=== PATIENT | female | born 1955 | race Caucasian/White ===

== ENCOUNTER 2016-12-22 07:40 | Inpatient (IN) | payer BC ==
[2016-11-27 12:12] VITALS: BMI 36.0
--- NOTE | 2016-11-27 12:45 | PAT Medication Instructions ---
Service Date Nov 27, 2016. Current Home Medication List Acetaminophen (Tylenol), 650 MG PO Q6 PRN for Pain Ibuprofen Tab (Motrin), 1 TAB PO TID PRN for Pain Mirabegron (Myrbetriq Er), 25 MG PO HS Multivitamin (Multivitamin), 1 TAB PO QAM Medication Instructions For Your Scheduled Surgery - Hold the following medications 10 days prior to surgery per surgeon instructions: Ibuprofen Tab (Motrin), 1 TAB PO TID PRN for Pain - Hold the following medications the morning of surgery: Multivitamin (Multivitamin), 1 TAB PO QAM - Take the following medications the morning of surgery with a sip of water: Acetaminophen (Tylenol), 650 MG PO Q6 PRN for Pain (if needed) - Take the following medications as scheduled the night before surgery: Mirabegron (Myrbetriq Er), 25 MG PO HS Acetaminophen (Tylenol), 650 MG PO Q6 PRN for Pain If you have any questions please call us at [phone] or [phone] ( [place]) or [phone]
--- NOTE | 2016-11-27 13:27 | DIAGNOSTIC IMAGING REPORT ---
CHEST PREADMISSION(PA/LAT) CLINICAL HISTORY: Preoperative evaluation. COMPARISON STUDY: No previous studies for comparison. FINDINGS: Lung volumes are normal. Lungs are clear. There is no pneumothorax or pleural effusion. Cardiac size is normal. Mediastinal contours are normal. There is no evidence of pulmonary edema. IMPRESSION: No acute cardiopulmonary findings. Electronically signed by: Nishant Gary M.D. 11/27/2016 1:26 PM Dictated Date/Time: 11/27/2016 1:25 PM
[2016-11-27 13:43] LABS: BASO % 0.8 %; BASO ABS # 0.05 K/uL (0-0.2); COMPLETE YES; EOS % 1.9 %; HEMATOCRIT 42.5 % (37-47); LYMPH ABS # 1.32 K/uL (1.2-3.4); MEAN CELL VOLUME 87.8 fL (80-100); MEAN CORPUSCULAR HEMOGLOBIN 29.8 pg (25-34); MEAN CORPUSCULAR HGB CONC 33.9 g/dl (32-36); MEAN PLATELET VOLUME 10.4 fL (7.4-10.4); MONO % 8.9 %; NEUT % 67.4 %; PLATELET COUNT 210 K/uL (130-400); RED BLOOD COUNT 4.84 M/uL (4.2-5.4)
[2016-11-27 13:50] LABS: PROTHROMBIN TIME (PATIENT) 10.7 SECONDS (9.0-12.0)
[2016-11-27 13:51] LABS: URINE APPEARANCE CLEAR (CLEAR); URINE BILIRUBIN NEG (NEG); URINE COLOR YELLOW; URINE EPITHELIAL CELL AUTO 20-30 /lpf (0-5); URINE NITRITE NEG (NEG); URINE SPECIFIC GRAVITY 1.015 (1.000-1.030); UROBILINOGEN NEG (NEG)
[2016-11-27 13:52] LABS: MANUAL MICROSCOPIC REQUIRED? NO; REVIEW REQ? NO
[2016-11-27 14:01] LABS: BUN/CREATININE RATIO 20.4 (10-20); CALCIUM 9.3 mg/dl (8.5-10.1); CREATININE 0.89 mg/dl (0.60-1.20); POTASSIUM 4.1 mmol/L (3.5-5.1)
--- NOTE | 2016-12-19 11:38 | HISTORY & PHYSICAL EXAMINATION ---
DATE OF ADMISSION: 12/22/2016 CHIEF COMPLAINT: Left knee pain. HISTORY OF PRESENT ILLNESS: Ms. Alvarez is a 61-year-old female with a multiple-year history of pain in her left knee. The patient has had much worse pain over the last 2 months. The patient has 10/10 pain. She has had injections, NSAID and bracing without relief. She now uses a cane. She has failed conservative treatment and is scheduled for a left knee replacement. PAST MEDICAL HISTORY: Urinary incontinence. She denies heart disease, diabetes or DVT. PAST SURGICAL HISTORY: Cholecystectomy in 2013, a partial hysterectomy. SOCIAL HISTORY: She denies alcohol or tobacco use. She lives in a single story home. She is and works as a quality control engineering technician. FAMILY HISTORY: Positive for DVT in her father who has leukemia. MEDICATIONS: ____ 25 mg daily, Advil p.r.n., Tylenol p.r.n. ALLERGIES: None. REVIEW OF SYSTEMS: See HPI. Ten other systems reviewed, all negative. PHYSICAL EXAMINATION: VITAL SIGNS: Height 5 foot 5, weight 219 pounds. BMI is 36. GENERAL: This is a well-developed, well-nourished female who is alert and oriented x3. Mood and affect are appropriate. HEAD, EYES, EARS, NOSE, AND THROAT: Normocephalic, atraumatic. Mucous membranes are moist and intact. NECK: Supple without lymphadenopathy. HEART: Regular rate and rhythm without murmurs, rubs, gallops. LUNGS: Clear to auscultation without wheezes or rhonchi. ABDOMEN: Soft and nontender. Bowel sounds are equal and active. EXTREMITIES: No ecchymosis, redness or warmth. Thigh and calf are soft and nontender. The patient has varus deformity. Range of motion is from 3 to 115 degrees with +2 to 3 laxity. She is neurovascularly intact with +5/5 strength. X-RAY EXAMINATION: AP and lateral views show joint space narrowing and osteophyte formation. IMPRESSION: Degenerative joint disease left knee. PLAN: The patient will be admitted for a left total knee arthroplasty. We will plan on aspirin for DVT prophylaxis. PCP is Olga Agee in [place]. She is doing outpatient physical therapy.
[~2016-12-22] VITALS: Ht 165.1 cm; Wt 98.7 kg
[2016-12-22] VITALS (7 sets, daily range): BP systolic 102–154; BP diastolic 66–75; PULSE 64–74; TEMP 36.3–36.8; O2SAT 95–99; Ht 165.1 cm; Wt 98.7 kg
[~2016-12-22 07:40] MED LIST: ACET-1311 PO; ACETAMINOPHEN 500 MG TAB PO SCH; BUPIVACAINE 0.5 % 5 MG/1 ML PF 10ML VIAL ONE; BUPIVACAINE/EPINEPHRINE 0.25% 1:200,000 30 ML VIAL ONE; CEFAZOLIN 2000 MG/60 ML D5W 60 ML IV SCH; CeleBREX 200 MG CAP PO SCH; DEXAMETHASONE 4 MG TAB PO SCH; FAMOTIDINE 20 MG TAB PO SCH; GABAPENTIN 300 MG CAP PO SCH; IBUP-1449 PO; LACTATED RINGER'S 1000ML 1,000 ML IV SCH; LACTATED RINGER'S 1000ML 500 ML IV ONE; METOCLOPRAMIDE HCL 10 MG TAB PO SCH; MIRA100T PO; MULT-506 PO; OXYCODONE HCL 10 MG TABCR (OXYCONTIN) PO SCH; POLYMYXIN B SULFATE 100,000 UNITS in NSS 100ML IR SCH; ROPIVACAINE 5MG/ML 30 ML 150 MG, BUPIVACAINE/EPINEPHR 0.5% MPF 30 ML, KETOROLAC TROMETH... INFIL SCH; VANCOMYCIN INJ 400 MG in NSS 100ML IR SCH
[2016-12-22] MEDS ORDERED: PROPOFOL IV EMULSION 10 MG/ML 20 ML VIAL IV ONE ×2 (09:32→09:35)
[2016-12-22] MEDS ORDERED: LIDOCAINE HCL 2% 2 ML VIAL (20MG/ML) ONE (09:32)
[2016-12-22] MEDS ORDERED: MIDAZOLAM HCL 1 MG/ML 2ML VIAL ONE (09:32)
[2016-12-22] MEDS ORDERED: FENTANYL CITRATE INJ 50 MCG/1 ML 2 ML VIAL ONE (09:32)
--- NOTE | 2016-12-22 09:34 | History & Physical Bridge Note ---
H&P Re-Evaluation Bridge Note: I have examined the patient, reviewed the History & Physical and in the interval since the performance of the History & Physical I have noted the following changes of clinical significance: No changes noted
[2016-12-22] MEDS ORDERED: FLUMAZENIL 0.1 MG/1 ML 10 ML VIAL IV PRN (09:45)
[2016-12-22] MEDS ORDERED: HYDROmorphone INJ 2 MG/ML SYR/VIAL IV PRN (09:45)
[2016-12-22] MEDS ORDERED: NALOXONE HCL 0.4 MG/1 ML VIAL/CARP IV PRN (09:45)
[2016-12-22] MEDS ORDERED: ATROPINE SULFATE 0.1 MG/ML 5ML SYR IV PRN (09:45)
[2016-12-22] MEDS ORDERED: ONDANSETRON INJ 2 MG/ML 2 ML VIAL IV PRN ×2 (09:45→12:15)
[2016-12-22] MEDS ORDERED: MEPERIDINE HCL 25 MG/ML CARP IV PRN (09:45)
[2016-12-22] MEDS ORDERED: LABETALOL HCL IV 5 MG/ML 20ML IV PRN (09:45)
[2016-12-22] MEDS ORDERED: PHENYLEPHRINE 100MCG/ML 5ML SYR IV PRN (09:45)
[2016-12-22] MEDS ORDERED: EpHEDrine SULFATE INJ 50 MG/ML AMP IV PRN (09:45)
[2016-12-22] MEDS ORDERED: FENTANYL CITRATE INJ 50 MCG/1 ML 2 ML VIAL IV PRN (09:45)
[2016-12-22] MEDS: TRANEXAMIC ACID INJ 1,000 MG in SODIUM CHLORIDE 0.9% 100ML 100 ML IV SCH ×2 (09:57→14:46)
[2016-12-22] MEDS ORDERED: ORTHO JOINT ANESTHETIC ONE (10:19)
[2016-12-22] MEDS ORDERED: BUPIVACAINE/EPINEPHRINE 0.25% 1:200,000 30 ML VIAL ONE ×2 (10:19→10:20)
[2016-12-22] MEDS ORDERED: POVIDONE-IODINE OP SOLN 30 ML BTL ONE (10:20)
[2016-12-22] MEDS ORDERED: BACITRACIN 50000 UNIT VIAL ONE (10:20)
[2016-12-22] MEDS ORDERED: LABETALOL HCL IV 5 MG/ML 20ML ONE (11:25)
--- NOTE | 2016-12-22 12:05 | [facility] Post Operative Brief Note ---
Immediate Operative Summary Operative Date Dec 22, 2016. Pre-Operative Diagnosis Left Knee Degenerative Joint Disease Post-Operative Diagnosis Left Knee Degenerative Joint Disease Procedure(s) Performed Left Total Knee Arthroplasty, Cemented Surgeon Dr. Jhonatan Sahu Slitter Operator Surgeon(s) Jett Arizmendi PA-C Estimated Blood Loss 75 mL Findings DJD Specimens A: Left Knee Bone and Tissue Complication(s) None Disposition Recovery Room / PACU
[2016-12-22] MEDS ORDERED: MoRPHine SULFATE 2 MG/ML CARP IV PRN (12:15)
[2016-12-22] MEDS ORDERED: ZOLPIDEM TARTRATE 5 MG TAB PO PRN (12:15)
[2016-12-22] MEDS ORDERED: KETOROLAC TROMETHAMINE 30 MG/ML VIAL IV. PRN (12:15)
[2016-12-22] MEDS ORDERED: METOCLOPRAMIDE HCL INJ 5 MG/ML 2 ML VIAL IV PRN (12:15)
[2016-12-22] MEDS ORDERED: MAGNESIUM HYDROXIDE SUSP 30 ML UDC PO PRN (12:15)
[2016-12-22] MEDS ORDERED: ALUMINUM/MAGNESIUM/SIMETH (MAALOX MAX) 30 ML UDC PO PRN (12:15)
[2016-12-22] MEDS ORDERED: BISACODYL 10 MG SUPP PR PRN (12:15)
[2016-12-22] MEDS ORDERED: SOD PHOSPHATE/SOD BIPHOSPHATE ENEMA 132 ML BTL PR PRN (12:15)
[2016-12-22] MEDS ORDERED: TRAMADOL HCL 50 MG TAB PO PRN (12:15)
[2016-12-22] MEDS ORDERED: DiphenhydrAMINE HCL 50 MG/ML VIAL IV PRN (12:15)
--- NOTE | 2016-12-22 13:14 | DIAGNOSTIC IMAGING REPORT ---
LEFT KNEE 2 VIEWS History: Left total knee arthroplasty. Degenerative arthritis. Postop. FINDINGS: The patient is status post a left total knee arthroplasty. The hardware is intact. No fracture or dislocation. Surgical drains are in place. IMPRESSION: Left total knee arthroplasty. No evidence for hardware complication. Electronically signed by: Renny Ghosh M.D. 12/22/2016 1:12 PM Dictated Date/Time: 12/22/2016 1:11 PM
[2016-12-22] MEDS ORDERED: HydrALAZINE HCL 20 MG/ML VIAL ONE ×2 (13:19→13:26)
--- NOTE | 2016-12-22 13:26 | Anesthesiology Progress Note ---
Anesthesia Post Op Note Date & Time Dec 22, 2016 at 13:26 Vital Signs Pain Intensity: 0 Vital Signs Past 12 Hours Date Time Temp Pulse Resp B/P Pulse Ox O2 Delivery O2 Flow Rate FiO2 12/22/16 13:20 70 18 126/61 97 Nasal Cannula 2 12/22/16 13:10 68 14 129/67 98 Nasal Cannula 2 12/22/16 13:00 68 19 121/60 96 Nasal Cannula 2 12/22/16 12:50 67 14 127/59 97 Nasal Cannula 2 12/22/16 12:42 36.4 84 19 122/51 93 Nasal Cannula 2 12/22/16 08:14 36.5 74 20 154/74 99 Room Air Notes Mental Status: alert / awake / arousable, participated in evaluation Pt Amnestic to Procedure: Yes Nausea / Vomiting: adequately controlled Pain: adequately controlled Airway Patency, RR, SpO2: stable & adequate BP & HR: stable & adequate Hydration State: stable & adequate Neuraxial Anesthesia: was administered, sensory block is resolving Anesthetic Complications: no major complications apparent
[2016-12-22] MEDS: D5W AND 1/2NSS + 20MEQ KCL 1,000 ML IV SCH ×2 (14:53→23:54)
[2016-12-22] MEDS: ACETAMINOPHEN 500 MG TAB PO SCH ×2 (15:54→22:03)
[2016-12-22] MEDS ORDERED: TRANEXAMIC ACID INJ 1,000 MG in SODIUM CHLORIDE 0.9% 100ML 100 ML IV SCH (16:00)
--- NOTE | 2016-12-22 17:28 | OPERATIVE REPORT ---
DATE OF OPERATION: 12/22/2016 PREOPERATIVE DIAGNOSIS: Degenerative arthritis, left knee. POSTOPERATIVE DIAGNOSIS: Same. PROCEDURE: Left total knee with patient matched implant. SURGEON: Jhonatan Sahu MD DE ALCHOLIZER: ASHUTOSH Aguirre ANESTHESIA: Spinal. BLOOD LOSS: 75 mL. REPLACEMENT FLUIDS: 1500 mL crystalloid. DRAINS: Hemovac x2. CULTURES: None. COMPLICATIONS: None. COMPONENTS USED: [employer] Knee System: Femur size 5, tibia size 4 x 10, patella size 35. NOTE: Jett Arizmendi was present and assisted throughout. He first assisted throughout. He personally closed the capsule, subcutaneous and skin layers and applied the postoperative dressing. DESCRIPTION OF PROCEDURE: Following satisfactory spinal, the patient was supine, a tourniquet was placed but not inflated. The lower extremity was prepared with ChloraPrep and draped sterilely. Following a surgical time-out, a midline incision was made with a trivector approach. The knee showed grade 4 changes most marked in the medial and patellofemoral compartments. The cruciate ligaments were excised. The patient matched femoral block was applied. Femoral distal rotation and resection were set and completed. A 4-in-1 block was used to finish preparation of the femur. The patient matched tibial block was applied. Tibial resection was completed. The patella was freehand cut. Soft tissue balancing was completed and a trial reduction showed good tensioning stability on the collateral ligament, stable range of motion, and the patella tracked well. The trial components were removed. The capsule was prepared with the orthopedic cocktail and following irrigation, the components were cemented with Simplex G cement. When the cement had hardened, the wound was irrigated and Betadine soak was performed for 5 minutes. After 5 minutes, the Betadine was irrigated. Two drains were placed. The arthrotomy was closed with running suture of 0 V-Loc and 2-0 Vicryl and the skin with a running subcuticular stitch of 3-0 V-Loc. Dermabond and a dry dressing were applied. The patient was returned to her bed in stable condition. I attest to the content of the Intraoperative Record and any orders documented therein. Any exceptio ns are noted below.
[2016-12-22] MEDS: CEFAZOLIN IV 2,000 MG in DEXTROSE 5% 50ML 50 ML IV SCH (19:59)
[2016-12-22] MEDS: ASPIRIN 81 MG ECTAB PO SCH (20:28)
[2016-12-22] MEDS ORDERED: MIRABEGRON ER 25 MG TAB PO SCH (21:00)
[2016-12-22] MEDS ORDERED: SENNA 8.6 MG TAB PO SCH (21:00)
[2016-12-22] MEDS: OXYCODONE HCL IR 5 MG TAB (IMMEDIATE RELEASE) PO PRN (23:54)
[2016-12-23 03:40] VITALS: BP 118/67; PULSE 67; TEMP 36.8; O2SAT 95
[2016-12-23] MEDS: CEFAZOLIN IV 2,000 MG in DEXTROSE 5% 50ML 50 ML IV SCH (04:07)
[2016-12-23] MEDS: ACETAMINOPHEN 500 MG TAB PO SCH (06:00)
[2016-12-23 06:53] LABS: HEMATOCRIT 35.3 % (37-47); MEAN CELL VOLUME 85.3 fL (80-100); MEAN CORPUSCULAR HEMOGLOBIN 29.2 pg (25-34); MEAN CORPUSCULAR HGB CONC 34.3 g/dl (32-36); MEAN PLATELET VOLUME 9.9 fL (7.4-10.4); PLATELET COUNT 196 K/uL (130-400); RED BLOOD COUNT 4.14 M/uL (4.2-5.4); WHITE BLOOD COUNT 14.67 K/uL (4.8-10.8)
[2016-12-23 07:20] LABS: BUN/CREATININE RATIO 11.9 (10-20); CALCIUM 8.4 mg/dl (8.5-10.1); CREATININE 0.83 mg/dl (0.60-1.20); POTASSIUM 4.1 mmol/L (3.5-5.1)
--- NOTE | 2016-12-23 08:01 | Orthopedic Progress Note ---
Orthopedic Progress Note Date of Service Dec 23, 2016. Subjective Post OP Day: 1 Reports: feeling well, Denies: SOB, calf pain, chest pain, light headedness, nausea / vomiting Objective calves soft nontender, N/V intact, dressing C/D/I, A&O x3, toes mobile, hemovac drainage (180/15CC PER SHIFT) Date Time Temp Pulse Resp B/P Pulse Ox O2 Delivery O2 Flow Rate FiO2 12/23/16 03:40 36.8 67 16 118/67 95 Room Air 12/22/16 23:50 Room Air 12/22/16 23:40 36.8 71 16 113/66 96 Room Air 12/22/16 15:40 36.5 66 18 102/67 95 Nasal Cannula 2.0 12/22/16 14:59 36.3 67 17 123/74 96 Nasal Cannula 2.0 12/22/16 14:51 64 16 111/70 96 Nasal Cannula 2.0 12/22/16 14:11 64 16 120/72 97 Nasal Cannula 2.0 12/22/16 13:45 36.6 71 16 115/75 96 Nasal Cannula 2.0 12/22/16 13:45 96 Nasal Cannula 2.0 12/22/16 13:45 96 Nasal Cannula 2.0 12/22/16 13:30 36.6 69 16 131/72 96 Nasal Cannula 2 12/22/16 13:20 70 18 126/61 97 Nasal Cannula 2 12/22/16 13:10 68 14 129/67 98 Nasal Cannula 2 12/22/16 13:00 68 19 121/60 96 Nasal Cannula 2 12/22/16 12:50 67 14 127/59 97 Nasal Cannula 2 12/22/16 12:42 36.4 84 19 122/51 93 Nasal Cannula 2 12/22/16 08:14 36.5 74 20 154/74 99 Room Air Laboratory Results 24 Hours: Test 12/23/16 06:34 Hematocrit 35.3 % Hemoglobin 12.1 g/dL Assessment & Plan Assessment: POD#1 SP LEFT TKA Inhouse Planning Pain Management: Celebrex, Oxycontin, PO Tylenol, Oxy IR DVT Prophylaxis: TEDs, SCDs, ASA Discharge Planning Discharge Planning: home with oppt (DC HOME TODAY)
--- NOTE | 2016-12-23 08:02 | Discharge Instructions ---
Discharge Instructions Admission Reason for Admission: Left Knee Degenerative Arthritis Discharge Discharge Diagnosis / Problem: SP LEFT TKA Discharge Goals Goal(s): Decrease discomfort, Improve function, Increase independence Activity Recommendations Activity Limitations: per Instructions/Follow-up section . Instructions / Follow-Up Instructions / Follow-Up ACTIVITY RECOMMENDATIONS: SELF CARE INSTRUCTIONS AFTER TOTAL KNEE REPLACEMENT A. You may need to continue a physical therapy program after discharge from the hospital. There are several options available to you. Your doctor will assist you in selecting the best one for you. 1. An out-patient facility 2 to 3 times a week for therapy or home therapy. 2. Continue working on all exercises taught to you in the hospital. Your goals should be to increase bending of your knee to 90 degrees and beyond and to fully straighten your knee. B. You may progress at your own pace from walking with a walker or crutches to a cane; then to no assistive devices. C. Make walking a part of your daily routine. Be up as much as comfortable with rest periods throughout the day. Rest with leg elevation is very important. Use the ice wrap frequently for the first 3-4 weeks. D. There are no restrictions on activities. You may ride in a car, shop, participate in flight teacher and all social activities. E. Wear the long elastic stockings (JEYSON hose) 20 hours a day for 2 weeks after surgery. They can be removed several times a day for laundering and for a bath. F. You may shower, no tub baths until cleared by your doctor. SPECIAL CARE INSTRUCTIONS: VERY IMPORTANT TO READ AND REVIEW A. There are a few signs you need to watch for after you are home. Call [facility] if you notice any of the followin. Increased severe knee pain. Some pain is expected especially when you exercise. 2. Increased swelling in your leg or knee; pain or swelling of the calf muscle in either lower leg. 3. Any fluid drainage from the incision. 4. Shortness of breath or chest pain. B. Please call [facility] at if you have any concerns or questions about your operation or recovery. The doctor or his nurse will return your call promptly. C. You must take antibiotics before dental work, bladder, bowel or other surgery. Your doctor will provide you with a permanent care to carry describing this precaution. IMPORTANT: * REMEMBER TO TAKE ASPIRIN, 81 MG, TWICE DAILY FOR 4 WEEKS UNLESS OTHERWISE DIRECTED. THIS IS YOUR BLOOD THINNER. * HIGH RISK PATIENTS MAY BE PRESCRIBED A STRONGER BLOOD THINNER. THIS WILL BE PROVIDED AT DISCHARGE. * CALL IF INCREASED PAIN, REDNESS, DRAINAGE OR FEVER GREATER THAT 101. * WEAR JEYSON HOSE 20 HOURS PER DAY FOR 2 WEEKS. DERMABOND Prineo- This is a mesh tape dressing that is covered with glue. It should remain in place until the incision is properly healed, usually 10-14 days. This dressing is designed to naturally slough off. You may trim the excess mesh tape as it peels off. Incision may be briefly wet in a shower. Dry immediately by blotting with a clean, dry towel. Do not bath or swim until instructed by your doctor. Do not scratch, rub, or pick at the dressing. Do not apply any topical ointments or lotions until dressing is completely removed and/or instructed by your doctor. There may be a small piece of suture material at one end of your incision. Do not pull or trim this. If it is bothersome or catching on clothing, you may cover it with a band-aid. FOLLOW UP VISIT: If appointment is not already scheduled: Please call [facility] to make a follow-up appointment for 2 weeks after your surgery at . Current Hospital Diet Patient's current hospital diet: Regular Diet Discharge Diet Recommended Diet: Regular Diet Procedures Procedures Performed: Left Total Knee Arthroplasty, Cemented Pending Studies Studies pending at discharge: no Medical Emergencies . Who to Call and When: Medical Emergencies: If at any time you feel your situation is an emergency, please call 911 immediately. . Non-Emergent Contact Non-Emergency issues call your: Primary Care Provider . "Provider Documentation" section prepared by Janneth Robison. VTE Core Measure Inpt VTE Proph given/why not?: Other Anticoagulation, T.E.DJayne Dalton, SCD's [place] Drug Monitoring Program Search Results: no issues identified
[2016-12-23] MEDS ORDERED: ONDA8TAB6 PO (08:04)
[2016-12-23] MEDS ORDERED: RXC5 PO (08:04)
[2016-12-23] MEDS ORDERED: CLB200 PO (08:04)
[2016-12-23] MEDS ORDERED: ASPEC81 PO (08:04)
[2016-12-23] MEDS ORDERED: SNK PO (08:04)
[2016-12-23] MEDS ORDERED: ACET-1138 PO (08:04)
[2016-12-23 08:07] VITALS: BP 126/65; PULSE 66; TEMP 36.6; O2SAT 97
--- NOTE | 2016-12-23 08:12 | Anesthesiology Progress Note ---
Anesthesia Post Op Note Date & Time Dec 23, 2016 at 08:12 Vital Signs Pain Intensity: 6.0 Vital Signs Past 12 Hours Date Time Temp Pulse Resp B/P Pulse Ox O2 Delivery O2 Flow Rate FiO2 12/23/16 08:07 36.6 66 16 126/65 97 Room Air 12/23/16 03:40 36.8 67 16 118/67 95 Room Air 12/22/16 23:50 Room Air 12/22/16 23:40 36.8 71 16 113/66 96 Room Air Notes Mental Status: alert / awake / arousable, participated in evaluation Pt Amnestic to Procedure: Yes Nausea / Vomiting: adequately controlled Pain: adequately controlled Airway Patency, RR, SpO2: stable & adequate BP & HR: stable & adequate Hydration State: stable & adequate Neuraxial Anesthesia: sensory block resolved Anesthetic Complications: no major complications apparent
[2016-12-23] MEDS ORDERED: PANTOprazole SOD 40 MG TAB PO SCH (09:00)
[2016-12-23] MEDS ORDERED: MULTIVITAMIN TAB PO SCH (09:00)
[2016-12-23] MEDS: ASPIRIN 81 MG ECTAB PO SCH (09:06)
[2016-12-23] MEDS: OXYCODONE HCL IR 5 MG TAB (IMMEDIATE RELEASE) PO PRN ×2 (09:09→13:06)
[2016-12-23] MEDS: D5W AND 1/2NSS + 20MEQ KCL 1,000 ML IV SCH (10:30)
[2016-12-23 12:09] VITALS: BP 147/69; PULSE 70; TEMP 36.5; O2SAT 100
[2016-12-24] MEDS ORDERED: CeleBREX 200 MG CAP PO SCH (21:00)
--- NOTE | 2016-12-25 17:26 | DISCHARGE SUMMARY ---
DISCHARGE DIAGNOSIS: Degenerative joint disease, left knee. SECONDARY DIAGNOSIS: Urinary incontinence. CONSULTATIONS: None. COMPLICATIONS: None. PROCEDURE: Left total knee arthroplasty performed by Dr. Joni Sahu on 12/22/2016. BRIEF HISTORY: As dictated in the history and physical. HOSPITAL SUMMARY: The patient was admitted on the above date and had the above-noted surgery performed which he tolerated well. On the first postoperative day, the patient was feeling well and had no complaints. Calves were soft, nontender, neurovascularly intact. Dressings were clean, dry and intact. Toes were mobile. Vital signs were stable. She was afebrile and hemoglobin was 12.1. She was started on physical therapy protocol and continued on DVT prophylaxis and pain management. In physical therapy, she had obtained 82 degrees of flexion and was ambulating 400 feet with a standard walker. The patient was progressing well and remaining stable and it was felt that she could be discharged to home on 12/23/2016. For further review, please see chart. LABORATORY AND X-RAY DATA: As per chart. DISCHARGE INSTRUCTIONS: The patient was discharged to home in satisfactory condition. DIET: Regular. ACTIVITY: Follow TKA instruction sheets and special care instructions as noted and follow up with Dr. Joni Sahu in 2 weeks. The patient to call for appointment if one has not been made for you. DISCHARGE MEDICATIONS: Acetaminophen 1000 mg p.o. q. 8 hours, aspirin 81 mg p.o. b.i.d., Celebrex 200 mg p.o. b.i.d., Zofran 8 mg p.o. q. 8 hours p.r.n. nausea, oxycodone 5-10 mg p.o. q. 4 hours p.r.n., senna 17.2 mg p.o. at bedtime, Myrbetriq extended release 25 mg p.o. at bedtime, multivitamin 1 tab p.o. q.a.m. and stop taking your 650 mg dosing of Tylenol and stop taking ibuprofen.
== END 2016-12-23 13:12 | disposition home or self-care (01) | DRG 470 ==
LOC: ENRESERVTM → ENRESERVDT → C.ACU 07:40 → C.3E 12:11
PROVIDERS: ADMIT Orthopaedic Surgery; ATTEND Orthopaedic Surgery
PROC: 0SRD0J9 Replacement of Left Knee Joint with Synthetic Substitute, Cemented, Open Approach (ICD-10-PCS; principal; 2016-12-22 10:30)
DX: M17.12 Unilateral primary osteoarthritis, left knee (principal); R32 Unspecified urinary incontinence; N32.81 Overactive bladder; E66.9 Obesity, unspecified; Z68.36 Body mass index [BMI] 36.0-36.9, adult; Z79.899 Other long term (current) drug therapy